=== PATIENT | male | born 1980 | race Caucasian/White ===

== ENCOUNTER 2017-03-20 21:24 | Emergency (ER) | payer OTHER ==
--- OUTSIDE RECORDS SUMMARY | 2017-03-20 21:31 | XMS REPORT ---
:1980 External Reference #:[id number] Author Organization [facility] Address [address] [place] [address] Phone [phone] Care Team Providers Name Role Phone Lori Castro M.D. Care Team Information [employer] Unavailable Lori Castro M.D. Primary Care Physician Unavailable Payers Type Date Identification Numbers Payment Provider Subscriber Health Maintenance Effective: Policy Number: Cj Mihai Kyle Organization (O) 08/26/2014 [id number] [employer] Group Number: [id number] [id number] PayID: [id number] [place] [address] Problems Date Description Provider Status Onset: 01/06/2015 Morbid obesity Lori Castro M.D. Active Onset: 02/27/2017 Vitamin D deficiency Lori Castro M.D. 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 Active Onset: 01/06/2015 Obstructive sleep apnea syndrome Lori Castro M.D. Active Family History Date Family Member(s) Problem(s) Comments General Obesity Father Diabetes Mellitus, II Onset: (age 47 Years) Mother [place] <50 Mother Heart Disease Mother Anxiety Mother Diabetes Mellitus, II Mother Hypertension Mother Hyperlipidemia First Brother Diverticulosis First Sister Anxiety First Sister Predm Social History Type Date Description Comments Lives With Alone Diet Average daily caloric intake is 2400 Occupation [employer] ETOH Use Occasional 2x month Smoking Patient has never smoked Recreational Drug Use Denies Drug Use Exercise Type/Frequency Exercises regularly 2x week, stability Currently Active Patient is currently sexually active Sexual Hx text male partner Allergies, Adverse Reactions, Alerts Date Description Reaction Status Severity Comments 01/06/2015 Lactose (Intolerance) active Medications Medication Date Status Form Strength Qnty SIG Indications Ordering Provider Hydrochlorothiazid 02/27 Active Tablets 25mg 30tab 1 by mouth I10 s every day [place], as needed M.D. Cialis 01/06 Active Tablets 10mg 1/2-1 tab by mouth 30 [place], min prior M.D. to relationshi p Naproxen Active Tablets 500mg 1 by mouth Unknown /0000 twice a day with food Cyclobenzaprine Active Tablets 10mg 1 po qd as Unknown HCL /0000 needed Trintellix Active Tablets 10mg take 1 Unknown /0000 tablet by mouth daily for depression Adderall XR Active Caps ER 20mg 2 po qd Unknown /0000 24HR Vitamin D Active Capsules [id number] take 1 Unknown (Ergocalciferol) /0000 capsule by mouth once weekly for 12 weeks. Omeprazole 01/06 Hx Capsules 10mg 30cap 1/[address] carolina francis every , - day M.D. 01/06 Sertraline HCL Hx Tablets 50mg 1 by mouth Unknown /0000 every day - 02/27 Concerta Hx Tablets 36mg 2 by mouth Unknown /0000 ER every day - 02/27 Aripiprazole Hx Tablets 5mg 1 tablets Unknown /0000 by mouth - every day 02/27 Vital Signs Date Vital Result Comment 02/27/2017 BP Systolic 132 mmHg BP Diastolic 84 mmHg Heart Rate 64 /min Body Temperature 98.8 F Respiratory Rate 18 /min Height 72 inches 6'0" Weight 542.00 lb BMI (Body Mass Index) 73.5 kg/m2 01/06/2015 BP Systolic 148 mmHg BP Diastolic 90 mmHg Heart Rate 80 /min Body Temperature 97.1 F Respiratory Rate 20 /min Height 72 inches 6'0" Weight 561.00 lb BMI (Body Mass Index) 76.1 kg/m2 Results Test Date Test Result H/L Range Note CBC No Diff 01/17/2017 White Blood Count 7.1 10^3/uL 3.5-10.8 Red Blood Count 4.93 10^6/uL 4.0-5.4 Hemoglobin 15.0 g/dL 14.0-18.0 Hematocrit 43 % 42-52 Mean Corpuscular Volume 87 fL 80-94 Mean Corpuscular Hemoglobin 31 pg 27-31 Mean Corpuscular HGB Conc 35 g/dL 31-36 Red Cell Distribution Width 14 % 10.5-15 Platelet Count 208 10^3/uL 150-450 Mean Platelet Volume 9 um3 7.4-10.4 Comp Metabolic Panel 01/17/2017 Sodium 135 mmol/L 133-145 Potassium 4.3 mmol/L 3.5-5.0 Chloride 103 mmol/L 101-111 Co2 Carbon Dioxide 30 mmol/L 22-32 Anion Gap 2 mmol/L 2-11 Glucose 91 mg/dL 70-100 Blood Urea Nitrogen 15 mg/dL 6-24 Creatinine 0.89 mg/dL 0.67-1.17 BUN/Creatinine Ratio 16.9 8-20 Calcium 9.1 mg/dL 8.6-10.3 Total Protein 7.2 g/dL 6.4-8.9 Albumin 3.6 g/dL 3.2-5.2 Globulin 3.6 g/dL 2-4 Albumin/Globulin Ratio 1.0 1-3 Total Bilirubin 1.40 mg/dL High 0.2-1.0 Alkaline Phosphatase 73 U/L 34-104 Alt 21 U/L 7-52 Ast 18 U/L 13-39 Egfr Non- 96.2 >60 Egfr 123.7 >60 1 Lipid Profile (Trig/Chol/HDL) 01/17/2017 Triglycerides 57 mg/dL 2 Cholesterol 151 mg/dL 3 HDL Cholesterol 43.7 mg/dL 4 LDL Cholesterol 96 mg/dL 5 Iron & Iron Binding Capacity 01/17/2017 Iron 89 g/dL 50-212 Unsaturated Iron Binding 281 g/dL Total Iron Binding Capacity 370 g/dL 250-450 % Iron Saturation 24 % 15-55 Laboratory test finding 01/17/2017 Cortisol 9.21 g/dL 6 TSH (Thyroid Stim Horm) 2.25 mcIU/mL 0.34-5.60 Folic Acid (Folate) 12.21 ng/mL >3.99 Vitamin B12 415 pg/mL 180-914 7 Vitamin D Total 25(Oh) < 7.0 ng/mL Low 20-50 Hemoglobin A1c (Glyco HGB) 4.8 % 4.0-5.6 8 Vitamin B1 (Whole Blood) 173 nmol/L 70-180 9 Vitamin B6 01/17/2017 Pyridoxal 5-Phosphate 3 g/L 5-50 10 Pyridoxic Acid 2 g/L 3-30 11 Comprehensive Metabolic Prof 12/23/2014 Sodium 136 mEq/L 134-149 Potassium 4.1 mEq/L 3.6-5.5 Chloride 99 mEq/L 94-112 Carbon Dioxide 26 mEq/L 21-32 Glucose 95 mg/dL 70-105 BUN 18 mg/dL 6-26 Creatinine 0.9 mg/dL 0.6-1.4 BUN/Creat Ratio 20.0 CALC 8.0-36.0 Calcium 9.5 mg/dL 8.6-10.2 Total Protein 7.3 g/dL 6.4-8.3 Albumin 4.0 g/dL 3.8-5.5 Globulin 3.3 g/dL 2.0-4.8 A/G Ratio 1.2 CALC 0.6-2.3 Alk. Phosphatase 70 U/L 22-95 Alt (SGPT) 32 U/L 7-35 Ast (Sgot) 21 U/L 5-34 Total Bilirubin 1.1 mg/dL 0.2-1.3 GFR Non- >60 ml/min/1.73m^ >=60 GFR >60 ml/min/1.73m^ >=60 Lipid Profile 12/23/2014 Cholesterol 171 mg/dL 120-200 Triglycerides 81 mg/dL 30-200 HDL Cholesterol 55 mg/dL 30-70 LDL (Calculated) 100 CALC 0-129 VLDL Cholesterol 16 mg/dL 0-50 HDL Risk Factor 3.1 CALC 0.0-4.4 Complete Blood Count 12/23/2014 WBC 7.4 x10^3/UL 3.6-9.6 RBC 5.03 x10^6/UL 3.90-5.70 HGB 15.6 g/dL 12.1-17.2 HCT 45 % 36-50 MCV 90.0 fL 82.2-97.4 MCH 30.9 pg 27.6-33.3 MCHC 34.3 g/dL 33.0-35.5 RDW 13.8 % High 11.6-13.7 PLT 220 x10^3/UL 150-400 MPV 8.0 fL 7.4-10.4 Gran # 5.0 x10^3/UL 1.5-7.2 Lymph# 2.0 x10^3/UL 0.7-4.9 Bennett# 0.4 x10^3/UL 0.1-0.9 Gran % 66.1 % 42.2-75.2 Lymph % 28.0 % 20.5-51.1 Bennett% 5.9 % 1.7-9.3 1 Because ethnic data is not always readily available, this report includes an eGFR for both -Americans and non- Americans. The National Kidney Disease Education Program (NKDEP) does not endorse the use of the MDRD equation for patients that are not between the ages of 18 and 70, are , have extremes of body size, muscle mass, or nutritional status, or are non- or non-. According to the National Kidney Foundation, irrespective of diagnosis, the stage of the disease is based on the level of kidney function: Stage Description GFR(mL/min/1.73 m(2)) 1 Kidney damage with normal or decreased GFR 90 2 Kidney damage with mild decrease in GFR 60-89 3 Moderate decrease in GFR 30-59 4 Severe decrease in GFR 15-29 5 Kidney failure <15 (or dialysis) 2 Desirable: <150 Borderline High: 150-199 High: 200-499 Very High: >500 3 Desirable: <200 Borderline High: 200-239 High: >239 4 Low: <40 Desirable: 40-60 High: >60 5 Desirable: <100 Near Optimal: 100-129 Borderline High: 130-159 High: 160-189 Very High: >189 6 AM 8.7-22.4 PM <10 7 Normal Range 180 to 914 Indeterminate Range 145 to 180 Deficient Range <145 8 Therapeutic target for the treatment of diabetes mellitus patients is <7% HBA1C, and in selective patients <6.0%. Please refer to [place] Diabetes Association diabetic care guidelines for further information. 9 ADDITIONAL INFORMATION This test was developed and its performance characteristics determined by [facility] in a manner consistent with CLIA requirements. This test has not been cleared or approved by the U.S. Food and Drug Administration. Test Performed by: [facility] [employer] - [address] [address] 10 ADDITIONAL INFORMATION This test was developed and its performance characteristics determined by [facility] in a manner consistent with CLIA requirements. This test has not been cleared or approved by the U.S. Food and Drug Administration. 11 ADDITIONAL INFORMATION This test was developed and its performance characteristics determined by [facility] in a manner consistent with CLIA requirements. This test has not been cleared or approved by the U.S. Food and Drug Administration. Test Performed by: [facility] - [address] [address] Procedures Date CPT Code Description Status 01/06/2015 [address] [facility] Completed Plan of Care 02/27/2017 - Lori Castro M.D.Z00.00 Encntr for general adult medical exam w/o abnormal findingsComments:Encourage an active and healthy lifestyle with proper eating habits including fruits, vegetables, 6-8 glasses of water a day and monitoring portion size. Recommend 30 minutes of daily physical activityincluding walking, aerobic exercise, sports, yoga or dance. Any activity is better than no activity.Recommend routine eye and dental exams. Next physical is due in 1-2 years. Recommend annual influenza [id number] Morbid (severe) obesity due to excess caloriesComments: Counseled on heart healthy diet such as Mediterranean diet. Eat protein and vegetables first then carbohydrates last. Get at least 150 minutes of moderate aerobic activity or 75 minutes of vigorous aerobic activity a week, or a combination of moderate and vigorous activity. General goal of 30 minutes of physical activity a day. following nursing tech, being eval for bariatric [id number] Obstructive sleep apnea (adult) (pediatric)Comments:to be [id number] Essential (primary) hypertensionNew Medication:Hydrochlorothiazide 25 mgComments:The patient will continue to monitor blood pressure and let me know the blood pressure results if there are readings persistently above 140/ 80. Goal blood pressure is less than 140/80. Recommend low salt/cardiac diet and routine exercise.F90.0 Attn-defct hyperactivity disorder, predom inattentive typeComments:sees awosbT54.0 Localized edemaComments:lipedema, working on weight loss ; trial diuretic as needed for swelling, Reviewed adverse side effects of medication. Advised to call the office if experiencing symptoms. Patient verbalized understanding.M25.512 Pain in left shoulderComments :Take medications as directed. Can use heat or ice on area 15 minutes on/off. Use a tennis ball or foam roller to massage and loosen muscle spasm. Stretching exercises are recommended twice a day. Callif symptoms aren't improved/worsen in next 1-2 weeks.E55.9 Vitamin D deficiency, unspecifiedComments:2000 units of vitamin D3 dailyAllComments:~B_~U_Medication Management~b_~u_ Patient Understands medications he's taking? Yes No Are there Barriers to Adherence? Yes No Has the patient been asked about herbal supplements and therapies, and OTC meds? Yes No
[2017-03-20 21:35] VITALS: BP 153/99
[2017-03-20] MEDS ORDERED: Azithromycin TAB* 250 MG PO ONE (21:47)
[2017-03-20] MEDS ORDERED: Albuterol HFA INHALER* 8 gm MDI INH ONE (21:48)
--- NOTE | 2017-03-20 21:52 | UC ---
Navdeep Kellogg Thomas, scribed for Jeffrey Espitia MD on 03/20/17 at 2142 . General HPI - HPI Summary HPI Summary: The patient is a 36 year old male presenting to the urgent care complaining of chest and head congestion that began 8-9 days ago. He has a cough with green production. The patient additionally complains of feelings of being dazed, subjective fever, wheezing, and green nasal discharge. The patient was travelling, and he reports that his ears have been clogged for the last three days. The patient has treated the symptoms with Mucinex for the last several days. The patient denies chills. - History of Current Complaint Chief Complaint: UCGeneralIllness Stated Complaint: SINUS AND CHEST CONGESTION Time Seen by Provider: 03/20/17 21:38 Hx Obtained From: Patient Onset/Duration: Lasting Days - 8-9, Still Present Timing: Constant Current Severity: Moderate Aggravating: None Alleviating: None Associated Signs & Symptoms: Positive: Other - chest and head congestion, cough , feelings of dazed, subjective fever, wheezing, green nasal discharge - Allergy/Home Medications Allergies/Adverse Reactions: Allergies Allergy/AdvReac Type Severity Reaction Status Date / Time Codeine Allergy Vomiting Verified 03/20/17 21:34 Hydrocodone Allergy Vomiting Verified 03/20/17 21:34 Home Medications: Home Medications Amphetamine-Dextroamphetamine [Adderall Xr 10 mg] 40 mg PO DAILY 03/20/17 [ History Confirmed 03/20/17] Vortioxetine HBr [Trintellix] 10 mg PO DAILY 03/20/17 [History Confirmed ] PMH/Surg Hx/FS Hx/Imm Hx Previously Healthy: No - Morbid obesity, HTN - Surgical History Surgical History: Yes Surgery Procedure, Year, and Place: tosilectomy and adnoids, soft palate 1997 - Family History Known Family History: Negative: Cardiac Disease - Social History Alcohol Use: Occasionally Alcohol Amount: 1-2 per months Substance Use Type: None Smoking Status (MU): Never Smoked Tobacco Have You Smoked in the Last Year: No - Immunization History Most Recent Influenza Vaccination: never Most Recent Tetanus Shot: 2009 Most Recent Pneumonia Vaccination: unsure Review of Systems Constitutional: Fever - subjective ENT: Nasal Discharge Respiratory: Cough, Other - Chest congestion, wheezing Psychological: Other - Feeling of dazed Is Patient Immunocompromised?: No All Other Systems Reviewed And Are Negative: Yes Physical Exam Triage Information Reviewed: Yes Vital Signs: Initial Vital Signs Temp 97.9 F 03/20/17 21:26 Pulse 118 03/20/17 21:26 Resp 19 03/20/17 21:26 BP 153/99 03/20/17 21:26 Pulse Ox 100 03/20/17 21:26 Vital Signs Reviewed: Yes - Additional Comments General: well-appearing, no pain distress Skin: warm, color reflects adequate perfusion, dry Head: normal Eyes: EOMI, MOHAMUD ENT: nasal discharge. Otitis media. Posterior pharynx erythema. Neck: supple, nontender Respiratory: CTA, breath sounds present Cardiovascular: RRR Abdomen: soft, nontender Bowel: present Musculoskeletal: normal, strength/ROM intact Neurological: normal, sensory/motor intact, A&O x3 Psychological: affect/mood appropriate Course/Dx - Course Course Of Treatment: Medications Reviewed. Allergies Noted. BP noted and advised to follow up with PCP. F/U PMD; RECHECK OF WORSE. - Differential Dx - Multi-Symptom Provider Diagnoses: BRONCHITIS WITH BRONCHOSPASM. Elevated blood pressure without history of hypertension Discharge - Discharge Plan Condition: Stable Disposition: HOME Prescriptions: Azithromycin TAB* [Zithromax TAB (Z-MICHELLE) 250 mg #6 tabs] 250 mg PO DAILY #4 tab Patient Education Materials: Acute Bronchitis (ED), Bronchospasm (ED), Wheezing (ED) Referrals: Lori Castro MD [Primary Care Provider] - Additional Instructions: FOLLOW UP WITH YOUR DOCTOR. GO TO THE EMERGENCY DEPARTMENT FOR ANY WORSENING OF YOUR CONDITION OR QUESTIONS OR CONCERNS. Your blood pressure was elevated during todays visit; please follow up with your primary care provider within a week for further evaluation. The documentation as recorded by the Navdeep carrasco Thomas accurately reflects the service I personally performed and the decisions made by me, Jeffrey Espitia MD.
[2017-03-20] MEDS ORDERED: Albuterol HFA INHALER* 8 gm MDI INH SCH (22:00)
== END 2017-03-20 22:05 | disposition home or self-care (01) ==
LOC: UCEAST 21:24
DX: J20.9 Acute bronchitis, unspecified (principal); I10 Essential (primary) hypertension; E66.01 Morbid (severe) obesity due to excess calories; Z90.89 Acquired absence of other organs; Z88.5 Allergy status to narcotic agent
CPT/HCPCS: 99212; A9270-GY; G0463

== ENCOUNTER 2017-03-27 11:45 | Emergency (ER) | payer OTHER ==
[2017-03-27 11:59] VITALS: BP 155/103
--- NOTE | 2017-03-27 13:03 | UC ---
Knee Pain HPI - HPI Summary HPI Summary: Patient presents with complaints of right knee pain, he states he was walking and her heard something, "pop", no he was pain when he tries to bear weight over the lateral aspect of his knee, or if he turns his foot outward. He states the pain is constant, but hurts more when he moves it, or bear weigh on it. The pain is described as aching at rest, and more sharp with movement. - History of Current Complaint Chief Complaint: UCLowerExtremity Stated Complaint: KNEE INJURY Time Seen by Provider: 03/27/17 12:43 Hx Obtained From: Patient Onset/Duration: Sudden Onset, Lasting Hours Severity Initially: Moderate Severity Currently: Severe Pain Intensity: 7 Character: Sharp, Aching Aggravating Factor(s): Movement, Weight Bearing Alleviating Factor(s): Rest Associated Signs And Symptoms: Positive: Negative Able to Bear Weight: No - Risk Factors Septic Arthritis Risk Factor: Negative Gout Risk Factor: Negative - Allergies/Home Medications Allergies/Adverse Reactions: Allergies Allergy/AdvReac Type Severity Reaction Status Date / Time MS Codeine [Codeine] Allergy Vomiting Verified 03/27/17 11:59 MS Hydrocodone [Hydrocodone] Allergy Vomiting Verified 03/27/17 11:59 lactose Allergy Diarrhea Uncoded 03/27/17 11:59 PMH/Surg Hx/FS Hx/Imm Hx Previously Healthy: Yes Respiratory History: Asthma - Surgical History Surgical History: Yes Surgery Procedure, Year, and Place: tosilectomy and adnoids, soft palate 1997 - Family History Known Family History: Negative: Cardiac Disease Family History: no reported cardio vascular issues in family - Social History Occupation: Employed Full-time Lives: Alone Alcohol Use: Occasionally Alcohol Amount: 1-2 per months Substance Use Type: None Smoking Status (MU): Never Smoked Tobacco Have You Smoked in the Last Year: No - Immunization History Most Recent Influenza Vaccination: never Most Recent Tetanus Shot: 2010 Most Recent Pneumonia Vaccination: unsure Review of Systems Constitutional: Negative Skin: Negative Eyes: Negative ENT: Negative Respiratory: Negative Cardiovascular: Negative Gastrointestinal: Negative Genitourinary: Negative Motor: Negative Neurovascular: Negative Musculoskeletal: Arthralgia, Decreased ROM, Myalgia Neurological: Negative Psychological: Negative Is Patient Immunocompromised?: No All Other Systems Reviewed And Are Negative: Yes Physical Exam Triage Information Reviewed: Yes Appearance: Well-Appearing Vital Signs: Initial Vital Signs Temp 96.9 F 03/27/17 11:54 Pulse 112 03/27/17 11:54 Resp 16 03/27/17 11:54 BP 155/103 03/27/17 11:54 Pulse Ox 96 03/27/17 11:54 Vital Signs Reviewed: Yes Eye Exam: Normal ENT Exam: Normal Neck exam: Normal Neck: Positive: 1 Respiratory Exam: Normal Cardiovascular Exam: Normal Musculoskeletal: Positive: ROM Limited @ - right knee pain on palpation over the lateral collateral ligment, I could not physically perform any other testing on his knee. Neurological Exam: Normal Psychological Exam: Normal Skin Exam: Normal Knee Pain Course/Dx - Course Course Of Treatment: Patient presents with complaints of knee pain that occurred while he was walking, he felt his knee "pop" and then had pain of the lateral collateral ligament. He cannot bear weight. Xrays were obtained and were read as negative, the reports was reviewed with the patient. He could not tolerate a knee immobizer, he was provided with crutches, and pain medication and will need an othopedist referral. - Differential Dx/Diagnosis Differential Diagnosis/HQI/PQRI: Sprain, Strain, Tendonitis, Other - internal right knee injury Provider Diagnoses: sprain. strain. internal right knee injury Discharge - Discharge Plan Condition: Stable Disposition: HOME Prescriptions: oxyCODONE/Acetamin 5/325 MG* [Percocet 5/325 TAB*] 1 tab PO Q4H PRN #14 tab MDD 6 PRN Reason: knee pain Patient Education Materials: Swollen Knee Joint (ED), Knee Pain (ED) Referrals: Lori Castro MD [Primary Care Provider] - Germán Cortes MD [Medical Doctor] -
--- NOTE | 2017-03-27 13:35 | RAD ---
Indication: Left knee pain after fall. 4 views of left knee demonstrates degenerative changes of the patellofemoral joint. No fracture is identified. No joint effusion is noted. IMPRESSION: No fracture of the left knee is noted. Degenerative changes are noted.
== END 2017-03-27 13:51 | disposition home or self-care (01) ==
LOC: UCEAST 11:45
DX: S83.91XA Sprain of unspecified site of right knee, initial encounter (principal); S86.911A Strain of unspecified muscle(s) and tendon(s) at lower leg level, right leg, initial encounter; X58.XXXA Exposure to other specified factors, initial encounter; Y93.01 Activity, walking, marching and hiking; Y92.9 Unspecified place or not applicable; Z88.5 Allergy status to narcotic agent; Z91.011 Allergy to milk products; J45.909 Unspecified asthma, uncomplicated
CPT/HCPCS: 99213; G0463

== ENCOUNTER 2017-06-27 11:11 | Day surgery (SDC) | payer OTHER ==
[~2017-06-27 11:11] MED LIST: Buffered Lidocaine 0.9% SYRIN* 5 ML/SYR SYRINGE INTRADERM ONE
[2017-06-27] MEDS ORDERED: Buffered Lidocaine 0.9% SYRIN* 5 ML/SYR SYRINGE ONE (11:19)
[2017-06-27] MEDS ORDERED: KETAMINE HCL* 50 MG/ML 10 ML VIAL ONE (12:11)
[2017-06-27] MEDS ORDERED: Dexmedetomidine* 200 MCG/2 ML 2 ML VIAL ONE (12:11)
[2017-06-27] MEDS ORDERED: Midazolam* 1 MG/ML 5 ML VIAL (5 MG) ONE (12:12)
[2017-06-27] MEDS ORDERED: Sodium Chloride 0.9%* 10 ML ONE (12:12)
[2017-06-27] MEDS ORDERED: Naloxone* 0.4 MG/ML 1 ML VIAL IV PRN (12:32)
[2017-06-27] MEDS ORDERED: Propofol* 10 MG/ML 20 ML BTL IV PUSH ONE (14:00)
[2017-06-27 14:37] VITALS: BP 117/92
--- NOTE | 2017-06-28 05:06 | PRO ---
CC: Dr. Jo; Lori Castro MD GASTROENTEROLOGY PROCEDURE NOTE: DATE OF PROCEDURE: 06/27/17 REFERRING PHYSICIAN: Dr. Lori Castro. PROCEDURE PERFORMED: EGD with biopsies. PREOPERATIVE DIAGNOSIS: A 36-year-old morbidly obese male who is pre-bariatric surgery. The patient has had Helicobacter pylori in the past. He has occasional heartburn. POSTOPERATIVE DIAGNOSES: 1. Distal esophagitis at the level of the GE junction at 45 cm from the incisors. Photographs and bi opsies obtained, no obvious Sharma's mucosa is noted. 2. Erosive antral gastritis. Biopsies obtained for CLOtest to rule out Helicobacter pylori. 3. Normal duodenal bulb and descending duodenum. PROCEDURE MEDICATIONS: Per anesthesia. INSTRUMENT: GF-190 Olympus high-definition gastroscope. DESCRIPTION OF PROCEDURE: Informed consent was obtained prior to performing this procedure. The ins trument was introduced into the mouth and passed through cervical esophagus under direct visualizatio n. The instrument was then advanced down the esophagus. In the distal esophagus, at the level of th e GE junction at approximately 45 cm from the incisors, there was evidence of significant esophagitis . No ulceration or obvious Sharma mucosa was noted. Biopsies were obtained. The scope was then pa ssed into the gastric cardia, fundus, body and antrum. There was evidence of mild diffuse gastritis but evidence of erosive gastritis of the antrum, especially in the area of the pylorus. Biopsies wer e obtained for CLOtest for H. pylori. The scope was passed through the pylorus and duodenal bulb and descending duodenum, both of which were normal. The cardia was visualized in retroflex manner and n o abnormalities were noted. The instrument was withdrawn from the patient. The patient tolerated th e procedure well and there were no complications. RECOMMENDATIONS: I will prescribe omeprazole 40 mg daily for 6 months or so. The patient may undergo his bariatric surgery anytime from 2 months from now to assure complete healing. I will notify the patient of biopsy results in 1 week. If H. pylori is positive, he will be treated. I have suggested the use of Tylenol instead of Naprosyn. [id number]/[facility] #: [id number]
== END 2017-06-27 16:00 | disposition home or self-care (01) ==
LOC: OR 11:11
PROVIDERS: ATTEND Internal Medicine
DX: K21.0 Gastro-esophageal reflux disease with esophagitis (principal); K29.60 Other gastritis without bleeding; E66.01 Morbid (severe) obesity due to excess calories
CPT/HCPCS: 87077; 88305; J2250; J2704

== ENCOUNTER 2017-08-24 15:33 | Emergency (ER) | payer OTHER ==
[2017-08-24 15:57] VITALS: BP 124/83
--- NOTE | 2017-08-24 16:13 | UC ---
Complaint Male HPI - HPI Summary HPI Summary: 36 yo male presents with concerns about HIV. He tells me that 2 days ago he was having anal intercourse with a new male partner. Pt was wearing a condom, but the condom broke. During intercourse there was "some blood" from the anus/ rectum of his partner. Pt doesn't think his partner has HIV or any other STDs, but ultimately is not sure and his status is unknown. Pt currently has no symptoms. He is interested in taking PEP. - History of Current Complaint Hx Obtained From: Patient Onset/Duration: Sudden Onset Pain Intensity: 0 <Kwesi Mckeon - Last Filed: 08/24/17 16:54> <Ferny Corrales - Last Filed: 08/24/17 17:17> - History of Current Complaint Chief Complaint: UCGeneralIllness Stated Complaint: post exposure prophylaxis - Allergies/Home Medications Allergies/Adverse Reactions: Allergies Allergy/AdvReac Type Severity Reaction Status Date / Time lactose Allergy Intermediate DIARRHEA, Uncoded 08/24/17 15:57 AND Vomiting PMH/Surg Hx/FS Hx/Imm Hx Cardiovascular History: Hypertension Psychological History: Depression - Surgical History Surgical History: Yes Surgery Procedure, Year, and Place: TONSILLECTOMY, ADENOIDS, SOFT PALATE [address] [place] [address] - Family History Known Family History: Positive: None Negative: Cardiac Disease Family History: no reported cardio vascular issues in family - Social History Occupation: Employed Full-time Lives: Alone Alcohol Use: Occasionally Alcohol Amount: 1-2 per month Substance Use Type: None Smoking Status (MU): Never Smoked Tobacco Have You Smoked in the Last Year: No - Immunization History Most Recent Influenza Vaccination: never Most Recent Tetanus Shot: 2009 Most Recent Pneumonia Vaccination: unsure <Kwesi Mckeon - Last Filed: 08/24/17 16:54> Review of Systems Constitutional: Negative Skin: Negative Respiratory: Negative Cardiovascular: Negative Gastrointestinal: Negative Genitourinary: Negative Neurovascular: Negative Neurological: Negative Psychological: Negative All Other Systems Reviewed And Are Negative: Yes <Kwesi Mckeon - Last Filed: 08/24/17 16:54> Physical Exam - Summary Physical Exam Summary: GENERAL: NAD. Obese SKIN: No rashes, sores, lesions, or open wounds. HEENT: Head: AT/NC Nose: Nasal mucosa pink and moist. Throat: Posterior oropharynx without exudates, erythema, or tonsillar enlargement. Uvula midline. NECK: Supple. Nontender. No lymphadenopathy. CHEST: CTAB. No r/r/w. No accessory muscle use. Breathing comfortably and in no distress. CV: RRR. Without m/r/g. Pulses intact. Brisk cap refill. NEURO: Alert. CN II-XII grossly intact. PSYCH: Age appropriate behavior. Triage Information Reviewed: Yes Vital Signs: Initial Vital Signs Temp 98.7 F 08/24/17 15:52 Pulse 88 08/24/17 15:52 Resp 20 08/24/17 15:52 BP 124/83 08/24/17 15:52 Pulse Ox 98 08/24/17 15:52 <Kwesi Mckeon - Last Filed: 08/24/17 16:54> Vital Signs: Initial Vital Signs Temp 98.7 F 08/24/17 15:52 Pulse 88 08/24/17 15:52 Resp 20 08/24/17 15:52 BP 124/83 08/24/17 15:52 Pulse Ox 98 08/24/17 15:52 <Ferny Corrales - Last Filed: 08/24/17 17:17> Complaint Male Course/Dx - Course Course Of Treatment: I had a long discussion with the patient regarding his potential risk of HIV transmission assuming his partner was positive. Ultimately his percent of transmission per the CDC is relatively low, but PEP is indicated to be offered given his exposure to blood. Pt has elected to take PEP and will f/u with Dr. Carrasco of infectious disease. Will draw for HIV today. He declined genital exam and other STD testing today. - Differential Dx/Diagnosis Provider Diagnoses: High risk sexual activity - blood exposure <Kwesi Mckeon Last Filed: 08/24/17 16:54> Discharge - Sign-Out/Discharge Documenting (check all that apply): Discharge/Admit/Transfer - Billing Disposition and Condition Condition: STABLE Disposition: Home <Kwesi Mckeon Last Filed: 08/24/17 16:54> - Billing Disposition and Condition Condition: STABLE Disposition: Home <Ferny Corrales - Last Filed: 08/24/17 17:17> - Discharge Plan Condition: Stable Disposition: HOME Prescriptions: Raltegravir* [Isentress*] 400 mg PO BID #50 tab Tenofovir/Emtricitab 200/300 * [Truvada 200/300 mg*] 1 tab PO DAILY #25 tab Patient Education Materials: HIV Transmission (ED), Postexposure Prophylaxis ( ED), HIV Infection (DC) Referrals: oLri Castro MD [Primary Care Provider] - Danilo GONZALES,Kyle Shook [Medical Doctor] - As Soon As Possible Additional Instructions: If you develop a fever, shortness of breath, chest pain, new or worsening symptoms - please call your PCP or go to the ED. 1) Please call Dr. Carrasco at the number below to schedule a follow up appointment Per institutional requirements, I have reviewed the chart, however, I was not consulted specifically or made aware of this patient by the above midlevel provider. I did not personally evaluate, interact with , or disposition this patient.
[2017-08-24] MEDS ORDERED: Raltegravir* 400 MG TAB PO ONE (16:25)
[2017-08-24] MEDS ORDERED: Tenofovir/Emtricitab 200/300 * TAB PO ONE (16:27)
--- NOTE | 2017-08-27 17:27 | UC ---
- Progress Note Progress Note: 08/27/2017 HIV 1&2: negative No change Kristin Olson PA-C Discharge - Sign-Out/Discharge Documenting (check all that apply): Discharge/Admit/Transfer - D/c home - Discharge Plan Condition: Stable Disposition: HOME Prescriptions: Raltegravir* [Isentress*] 400 mg PO BID #50 tab Tenofovir/Emtricitab 200/300 * [Truvada 200/300 mg*] 1 tab PO DAILY #25 tab Patient Education Materials: HIV Transmission (ED), Postexposure Prophylaxis ( ED), HIV Infection (DC) Referrals: Lori Castro MD [Primary Care Provider] - Danilo GONZALES,Kyle Shook [Medical Doctor] - As Soon As Possible Additional Instructions: If you develop a fever, shortness of breath, chest pain, new or worsening symptoms - please call your PCP or go to the ED. 1) Please call Dr. Carrasco at the number below to schedule a follow up appointment Per institutional requirements, I have reviewed the chart, however, I was not consulted specifically or made aware of this patient by the above midlevel provider. I did not personally evaluate, interact with , or disposition this patient. - Billing Disposition and Condition Condition: STABLE Disposition: Home
== END 2017-08-24 16:50 | disposition home or self-care (01) ==
LOC: UCEAST 15:33
DX: Z77.21 Contact with and (suspected) exposure to potentially hazardous body fluids (principal); Z72.52 High risk homosexual behavior
CPT/HCPCS: 36415; 86703; 99212; G0463